=== PATIENT | male | born 1930 | race Caucasian/White ===

== ENCOUNTER 2017-02-20 14:38 | Emergency (ER) | payer MEDICARE ==
--- NOTE | 2017-02-20 15:27 | ER PHYSICIAN DOCUMENTATION ---
Physician Documentation [facility] Name:Ruthy Maldonado Jr Age:86 yrs Sex:Male :1930 Arrival Date:02/20/2017 Time:14:38 Bed6 Private MD:Valentín Clemente ED, John Disposition: 02/20/17 15:08 Discharged to Home/Self Care. Impression: Distal Radius Fracture. - Condition is Good. - Discharge Instructions: WRIST FRACTURE Colles No Reduction Required - COLLES FRACTURE, No Reduction Required. - Medical Reconciliation form form. - Follow up: Duke Kaur DO, Wilmer Hope MD; When: 1 week; Reason: Continuance of care. - Problem is new. - Symptoms have improved. HPI: 02/20 16:08 This 86 yrs old Male presents to ER via Private Vehicle with complaints of jm Fall Injury - L WRIST. 16:08 Details of fall: The patient fell from an upright position. Onset: The jm symptom(s)/episode began/occurred yesterday. Associated injuries: The patient sustained dorsal aspect of left forearm. Pt w FOOSH injury to the L wrist. . Historical: - Allergies: Ambien; SULFA (SULFONAMIDES); merthiolate; Lorazepam; Coumadin; Carafate; - Home Meds: 1. aspirin 81 mg oral tab 1 tab once daily 2. atorvastatin 10 mg oral tab 1 tab once daily 3. allopurinol 300 mg oral tab 1 tab once daily 4. Lipitor 10 mg oral tab 1 tab once daily 5. Celexa 20 mg oral tab 1 tab once daily 6. DILT-XR 240 mg oral CDER 1 cap once daily 7. finasteride 5 mg oral tab 1 tab once daily 8. Flonase 50 mcg/actuation nasal spsn 1 spray 2 times per day 9. furosemide 40 mg oral tab 1 tab 2 times per day 10. hydralazine 25 mg oral tab 1 tab 2 times per day with food 11. levothyroxine 50 mcg oral tab 1 tab once daily 12. magnesium oxide 400 mg oral tab daily 13. metoprolol tartrate 100 mg oral tab 1 tab once daily with a meal 14. pantoprazole 40 mg oral TbEC 1 tab once daily 15. potassium chloride 20 mEq oral TbER 1 tab 2 times per day 16. 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 - Ebola Screening: : Patient negative for fever greater than or equal to 101.5 degrees Fahrenheit, and additional compatible Ebola Virus Disease symptoms. - Immunization history: Pneumococcal vaccine is up to date, Flu Vaccine < 1 year. - Social history: Smoking status: Patient states was never smoker of tobacco. ROS: 16:08 MS/extremity: Positive for pain, swelling, tenderness. jm 16:08 Skin: Positive for swelling. 16:08 Neuro: Positive for tingling. Exam: 16:08 Constitutional: The patient appears alert, awake. jm 16:08 Musculoskeletal/extremity: Extremities: grossly normal except: noted in the dorsal aspect of left wrist and palmar aspect of left wrist: decreased ROM, Pulses: are normal with no appreciated deficits, Sensation intact. 16:08 Neuro: Mentation: is normal, Memory: is normal. Vital Signs: 14:49 BP 132 / 68; Pulse 67; Resp 15; Temp 98.0(TE); Pulse Ox 92% on R/A; Weight 59.87 kg; rh Height 5 ft. 5 in. (165.10 cm); Pain 5/10; 14:49 Body Mass Index 21.97 (59.87 kg, 165.10 cm) rh Procedures: 16:10 Splinting: Splint applied to palmar aspect of left wrist and dorsal aspect of left jm wrist using Orthoglass splint, applied by myself. Examined by me, post splint application: neurovascular intact, brisk capillary refill noted, Patient tolerated well. MDM: 14:39 Patient medically screened. 16:10 Differential diagnosis: contusion, fracture. Data reviewed: vital signs, nurses notes, old medical records, radiologic studies, and as a result, I will discharge patient. Test interpretation: by ED physician or midlevel provider: plain radiologic studies. Counseling: I had a detailed discussion with the patient and/or guardian regarding: the historical points, exam findings, and any diagnostic results supporting the discharge/admit diagnosis, radiology results, the need for outpatient follow up, a orthopedic surgeon. ED course: Pt w distal radius fx. Pt will f/u w Dr. Kaur. . 02/21 11:38 Order name: WRIST; [place] [id number] EDMS 02/20 14:50 Order name: ORTHO: Ice Pack; Complete Time: 14:50 rh 02/20 15:11 Order name: Wound Care; Complete Time: 15:11 rh 02/20 15:13 Order name: ORTHO: Splint; Complete Time: 15:13 rh 02/20 15:25 Order name: ORTHO: Sling; Complete Time: 15:25 rh Dispensed Medications: No medications were administered Signatures: Odilia Ramirez RN RN Parish Hernandez MD MD Lyn [facility]Co
--- NOTE | 2017-02-20 15:27 | ER NURSING DOCUMENTATION ---
Nurse's Notes [facility] Name:Ruthy Maldonado Jr Age:86 yrs Sex:Male :1930 Arrival Date:02/20/2017 Time:14:38 Bed6 Private MD:Valentín Clemente Diagnosis:Distal Radius Fracture Presentation: 02/20 14:39 Acuity: KAY 4 rh 14:45 Presenting complaint: Patient states: yesterday pt was trying to sit in his chair, he rh missed the chair and fell on the left elbow and wrist. Pt has skin tear to lest elbow and c/o pain in the left wrist. Transition of care: Home. 14:45 Method Of Arrival: Private Vehicle Triage Assessment: 14:48 General: Appears comfortable, Behavior is cooperative. Pain: Complains of pain in rh dorsal aspect of left forearm and left elbow. EENT: Oral mucosa is moist. Neuro: Level of Consciousness is awake, alert, obeys commands, Oriented to person, place, time, event. Cardiovascular: Capillary refill < 3 seconds. Derm: Skin is intact, is fragile, Skin is pink, warm & dry. Musculoskeletal: Circulation, motion, and sensation intact Range of motion intact in all extremities. Injury Description: Skin tear. Historical: - Allergies: Ambien; SULFA (SULFONAMIDES); merthiolate; Lorazepam; Coumadin; Carafate; - Home Meds: 1. aspirin 81 mg oral tab 1 tab once daily 2. atorvastatin 10 mg oral tab 1 tab once daily 3. allopurinol 300 mg oral tab 1 tab once daily 4. Lipitor 10 mg oral tab 1 tab once daily 5. Celexa 20 mg oral tab 1 tab once daily 6. DILT-XR 240 mg oral CDER 1 cap once daily 7. finasteride 5 mg oral tab 1 tab once daily 8. Flonase 50 mcg/actuation nasal spsn 1 spray 2 times per day 9. furosemide 40 mg oral tab 1 tab 2 times per day 10. hydralazine 25 mg oral tab 1 tab 2 times per day with food 11. levothyroxine 50 mcg oral tab 1 tab once daily 12. magnesium oxide 400 mg oral tab daily 13. metoprolol tartrate 100 mg oral tab 1 tab once daily with a meal 14. pantoprazole 40 mg oral TbEC 1 tab once daily 15. potassium chloride 20 mEq oral TbER 1 tab 2 times per day 16. 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 - Ebola Screening: : Patient negative for fever greater than or equal to 101.5 degrees Fahrenheit, and additional compatible Ebola Virus Disease symptoms. - Immunization history: Pneumococcal vaccine is up to date, Flu Vaccine < 1 year. - Social history: Smoking status: Patient states was never smoker of tobacco. Screenin:50 Infectious Disease Risk None. Abuse screen: Denies threats or abuse. Denies injuries rh from another. Nutritional screening: No deficits noted. Assessment: 14:50 See Triage Assessment done by same RN. rh 15:25 Musculoskeletal: Circulation, motion, and sensation intact IN THE LEFT ARM POST SPLINT. rh Vital Signs: 14:49 BP 132 / 68; Pulse 67; Resp 15; Temp 98.0(TE); Pulse Ox 92% on R/A; Weight 59.87 kg; rh Height 5 ft. 5 in. (165.10 cm); Pain 5/10; 14:49 Body Mass Index 21.97 (59.87 kg, 165.10 cm) rh ED Course: 14:38 Patient arrived in ED. jl 14:38 Valentín Clemente MD is Private Physician. jl 14:39 Parish Merida MD is Attending Physician. 14:39 Lyn Cho is Primary Nurse. 14:39 Triage completed. rh 14:50 Notified ED Physician of patient's arrival and chief complaint. Dr. Merida notified. rh Affected limb iced. Affected limb elevated. 14:50 Valuables Remains with patient Patient has correct armband on for positive rh identification. Bed in low position. Call light in reach. Side rails up X 1. 15:07 Duke Kaur DO, Wilmer Hope MD is Referral Physician. jm 15:11 Wound care to SKIN TEAR located on left elbow was cleaned with soap and water, Patient rh tolerated well. 15:13 Sugar tong splint applied on left arm. rh 15:25 Sling applied to left arm. rh Administered Medications: No medications were administered Outcome: 15:08 Discharge ordered by . laura 15:24 Discharged to home ambulatory. 15:24 Condition: improved 15:24 Discharge Assessment: Patient awake, alert and oriented x 3. No cognitive and/or functional deficits noted. Patient verbalized understanding of disposition instructions. 15:24 Discharge instructions given to patient, Instructed on discharge instructions, follow up and referral plans. Demonstrated understanding of instructions. 15:26 Patient left the ED. 02/21 15:49 Discharge F/U Call: Spoke with: other: Name: spoke with family pt sleeping. pt had st troubles controlling his pain last night but that was better today. family was instructed to call if they had trouble with pain control and we could see about getting him a rx fro something stronger. They were also instructed to call with any other concerns. Signatures: Mercedes Vital, RN Parish Shane MD MD jm Abbott, Lyn Gamble Jeff jl
--- NOTE | 2017-02-21 10:08 | RADIOLOGY REPORT ---
Four views of the left wrist demonstrate a transverse fracture of the distal radial metaphysis. There is dorsal impaction resulting in loss of the normal volar tilt. I do not identify definite intraarticular involvement. The ulna and carpus appear intact. Degenerative changes are seen in the wrist. IMPRESSION: Impacted left Colles fracture as described. [facility]
== END 2017-02-20 15:27 | disposition home or self-care (01) ==
LOC: ER 14:38
DX: S52.532A Colles' fracture of left radius, initial encounter for closed fracture (principal); W18.39XA Other fall on same level, initial encounter; Y92.019 Unspecified place in single-family (private) house as the place of occurrence of the external cause; I10 Essential (primary) hypertension; I25.10 Atherosclerotic heart disease of native coronary artery without angina pectoris; Z79.899 Other long term (current) drug therapy; Z79.82 Long term (current) use of aspirin
CPT/HCPCS: 29105; 73110; 99283; 99284